=== PATIENT | male | born 1980 | race American Indian/Alaskan Native ===

== ENCOUNTER → 2021-06-01 15:20 | Outpatient (BNVA) | payer BC, SELFPAY | PROVIDERS: Family Provider Family Medicine; Visit Provider Registered Nurse Neonatal Intensive Care | DX: M25.561 Pain in right knee (principal) | CPT/HCPCS: 73562 ==

== ENCOUNTER → 2021-08-15 14:57 | Outpatient (BNVA) | payer BC, SELFPAY | PROVIDERS: Family Provider Family Medicine; Visit Provider Orthopaedic Surgery | DX: M25.561 Pain in right knee (principal) | CPT/HCPCS: 73560 ==

== ENCOUNTER → 2021-09-19 14:22 | Outpatient (BNVA) | payer BC, SELFPAY | PROVIDERS: Visit Provider Orthopaedic Surgery | DX: Z20.822 Contact with and (suspected) exposure to COVID-19 (principal); M17.11 Unilateral primary osteoarthritis, right knee | CPT/HCPCS: 87635 ==

== ENCOUNTER 2021-09-24 09:50 | Observation (INO) | payer BC, SELFPAY ==
[2021-09-19 11:06] VITALS: BMI 36.2
--- NOTE | 2021-09-19 11:35 | ANES.PREANE2 ---
Pre-Anesthetic Assessment Pre-Anesthetic Assessment: Height/Weight: Height 1.8 m Weight 117.934 kg Preop Diagnosis: knee pain Proposed Procedure: Operation Date: 09/24/21 07:00 Proposed Procedures p Total Knee Arthroplasty 30492 M17.11(Right) - Chintan Newton MD Familial anesthetic complications: none Social: Social History: Tobacco and No alcohol Exam: Pre-Anes Outpt Exam: alert, oriented x 3, clear to auscultation bilaterally and regular rate & rhythm Airway: MP: 3 Dentition: Full Metabolic: Metabolic: Morbid obesity Musc/skel: Musc/skel: OA/DJD Anesthetic Plan: ASA status: 2 Anesthesia: MAC and Regional (specify below) Other: spinal + adductor Risk of > 500 ml blood loss (7ml/kg in children): Yes, adequate IV access and fluids planned PFSH Anesthesia PFSH: Social History Smoking and tobacco status: current every day smoker Data Anesthesia Cardiac Studies: No Data to Display
[2021-09-24] VITALS (20 sets, daily range): BP systolic 119–164; BP diastolic 76–98; PULSE 61–91; RESP 10–18; TEMP 36.2–37.1; O2SAT 90–99
[2021-09-24] MEDS: gabapentin 300 mg Capsule PO ×2 (06:03→17:05)
[2021-09-24] MEDS: acetaminophen 500 mg Tablet 1000 MG PO ×3 (06:03→17:04)
[2021-09-24] MEDS: CELEcoxib 200 mg Capsule 400 MG PO (06:03)
[2021-09-24] MEDS: oxyCODONE 20 mg ER (12 HR) Tablet PO (06:03)
[2021-09-24] MEDS: sodium chloride 0.9% 1,000 ML 30 ML IV (06:12)
--- NOTE | 2021-09-24 07:00 | P.ANESUD_ITS ---
Pre-Anesthetic Update Pre-Anesthetic Assessment: Date of Surgery/Procedure: 09/24/21 Preop Leonarda gnosis: Osteoarthritis Right knee Proposed Procedure: Operation Date: 09/24/21 07:00 Proposed Procedures p Total Knee Arthroplasty 07734 M17.11(Right) - Chintan Newton MD Any changes to Pre-Anesthetic Assessment?: No Last Intake: Intake Last Liquid Date 09/23/21 Last Liquid Time 23:15 Last Solid Date 09/23/21 Last Solid Time 23:15 Vitals: Temperature 97.6 F 09/24/21 06:03 Temperature Source Temporal Artery S can 09/24/21 06:03 Pulse Rate 91 09/24/21 06:03 Respiratory Rate 16 09/24/21 06:03 Respiratory Effort 09/24/21 06:03 Respiratory Depth Normal 09/24/21 06:03 Respiratory Patter n 09/24/21 06:03 Blood Pressure 161/98 09/24/21 06:03 Blood Pressure Niki n 119 09/24/21 06:03 Pulse Oximetry 98 09/24/21 06:03 Oxygen Delivery Me thod 09/24/21 06:03 Exam: Pre-Anes Outpt Exam: alert, oriented x 3, clear to auscultation bilaterally and regular rate & rhythm Cardiac Studies: No Data to Display
--- NOTE | 2021-09-24 07:01 | W.PM.OPSFHP ---
Same Day Surgery H&P Indication for Procedure/HPI DATE OF PROCEDURE: September 24, 2021 CHIEF COMPLAINT/INDICATIONFOR SURGICAL PROCEDURE: 40-year-old with osteoarthritis right knee. Has failed anti-inflammatory and injections. Here for elective right total knee Dav PREOP DIAGNOSIS: Osteoarthritis Right knee PLANNED PROCEDRUE: Operation Date: 09/24/21 07:00 Proposed Procedures p Total Knee Arthroplasty 23653 M17.11(Right) - Chintan Newton MD Medications/Allergies* Allergies/Adverse Reactions Allergy/AdvReac Type Severity Reaction Status Date / Time No Known Allergies Allergy Verified 08/15/21 14:40 Current Medications: Generic Name Dose Route Start Last Admin Trade Name Freq PRN Reason Stop Dose Admin Sodium Chloride 1,000 mls @ 30 mls/hr 09/24/21 06:00 09/24/21 06:12 Sodium Chloride 0.9% IV 09/25/21 05:59 30 mls/hr .Q24H BILLY Administration Pertinent History/Comorbid Conditions* Social History Smoking and tobacco status: current every day smoker Pertinent Exam Findings alert, oriented x 3, clear to auscultation bilaterally, regular rate & rhythm and operative site marked Recommendations Surgery/Procedure today Coding Level of Care Code Acute Registered Nurse Bone Marrow Transplant for Candida Pérez
[2021-09-24] MEDS: tranexamic acid 1,000 mg/10mL SDV 1000 MG IV (07:50)
--- NOTE | 2021-09-24 07:56 | ANES.PROC ---
Anesthesia Procedures Procedure/Date: 09/24/21 Nerve Block ^: Nerve Block 1: Main Anesthesia: spinal anesthesia block Time Out Performed: Yes Consent: requested by attending/covering physician, from patient, risks and benefits reviewed and patient agrees to proceed Nerve block location: adductor canal (right) Anesthesia monitors applied: pulse oximetry, EKG, BP cuff and oxygen Nerve block position: supine Anesthetic Used: ropivicaine 0.5% Amount of anesthesia used (mL): 20 Ultrasound used to: recognize landmarks Nerve Stimulator Used?: No Interscalene/Femoral BLK: 4 stimuplex 21 g needle used for position and inplane approach and visualize local anesthetic spread Injection: neg aspiration of heme Patient Tolerated Procedure: well Complications: none
[2021-09-24] MEDS: tranexamic acid 1,000 mg/10mL SDV 1000 MG IRRIGATION (08:08)
[2021-09-24] MEDS: ketorolac 30 mg/mL INJ IM (08:08)
[2021-09-24] MEDS: EPINEPHrine 1 mg/mL INJ XX (08:08)
--- NOTE | 2021-09-24 09:24 | XR_ITS ---
WS: [id number] KNEE RIGHT TECHNIQUE: 2 views of the right knee CLINICAL INFORMATION: Right Total Knee arthroplasty COMPARISON: None. FINDINGS: Normal anatomic alignment. Recent postoperative changes right TKA. Hardware in good position. No evid ence of hardware loosening. Patella prosthesis. Soft tissue edema. Postoperative air in the subcutane ous soft tissues and bursa. XR/XR knee RT 1-2V 48206 IMPRESSION: Normal for postoperative purposes Kellgren-Moiz Classification: NA
--- NOTE | 2021-09-24 09:24 | PM.OP ---
Operative Report Date of procedure: September 24, 2021 Pre-op Diagnosis: Osteoarthritis Right knee Post-op diagnosis: same Post-op Findings: Same Procedure Done: Right total knee arthroplasty Pathology: none sent Surgeon: Chintan Newton Anesthesia: Nerve Block (Spinal, adductor canal block) Estimated blood loss (mL): 100 Findings: The patient had eburnated bone the patient had eburnated bone over the medial femoral condyle medial tibial plateau patella and trochlea. Condition: stable Disposition: PACU Procedure: the patient was taken to the operating room. Patient was given 1 g of tranexamic acid . The above anesthesia provided by the anesthesia service. A timeout was performed. The patient was prepped and draped in the usual fashion with the lower extremity exposed. A anterior incision was made, midline, from a point proximal to the patella to the distal tibial tubercle. The knee was entered through a medial parapatellar approach. The patella could be displaced laterally and the knee flexed. The patellar fat pad was resected to provide better visibility. Retractors were placed medially and laterally adjacent to the tibial plateau. The femoral canal was drilled in line with the longitudinal axis of the femur. Intramedullary femoral guide for used to make a distal femoral cut in 5 degrees of valgus, resecting 8 mm from the more prominent condyle. Next the extra medullary tibial guide was placed in alignment with the longitudinal axis of the tibia. The cutting guides were set to remove just over 9 mm from the high tibial plateau. The proximal tibia was then cut. The femoral measuring guide was then placed over the distal femur. Rotation was verified checking the relationship of the guide to the condyle and the trochlear groove. The femur was measured and cut for the desired femoral component. The desired tibial baseplate was then chosen. A trial reduction with the femur tibial baseplate and polyethylene was done, assuring that the knee was stable throughout full motion. Ligament balancing nothing more than a release of the deep medial collateral ligament and resection of medial osteophyte.The tibia was prepared for the tibial baseplate. Patellar thickness was then measured. The patella was cut removing articular cartilage and prepared for appropriate size patellar button. surfaces were cleaned with a gentamicin solution. The femur tibia and patella were then press-fit into place. The posterior capsule and collateral ligaments were then injected with a solution of 100 mL of 0.2% ropivacaine, 1 mL of a 1:1000 epinephrine solution, 30 mg of Toradol, and 1 g of tranexamic acid. final polyethylene component was then snapped into place into the tibia. The extensor retinaculum was closed with a running 1 Stratafix.. The subcutaneous tissues were closed with 2-0 Vicryl and the skin was closed with a running 4-0 Stratafix. The wound was covered with a Dermabond Prinio dressing. It was covered with 4xrs and a compressive Tubigauae was applied. The patient was taken to recovery room in stable condition. [employer] Stix total knee arthroplasty components were used includin) Size 5 triathalon cruciate retaining femoral component 2) Size 5 Tritanium tibial component 3) 35 mm /10mm thickness Tritanium asymetric patella 4) Size 5/13 mm thickness CR tibial bearing insert
[2021-09-24] MEDS: ondansetron 2 mg/ML SDV 2 mL 4 MG IVP (09:28)
[2021-09-24] MEDS: oxyCODONE 5 mg IR Tab/Cap PO ×2 (10:23→14:41)
[2021-09-24] MEDS: sodium chloride 0.9% 1,000 ML 100 ML IV (11:34)
--- NOTE | 2021-09-24 13:31 | ANE.PACU2 ---
Inpatient post-anesthesia follow up: Airway intact: Yes Vital signs: Temperature 98.7 F Pulse Rate 61 Respiratory Rate 16 Blood Pressure 147/91 Pulse Oximetry 97 Oxygen Delivery Me thod Room Air Oxygen Flow Rate Fraction of Inspir ed Oxygen Hydration adequate: Yes Nausea and vomiting: No Pain level: 2 Mental status: Baseline
--- NOTE | 2021-09-24 16:01 | PM.DCS ---
Discharge Providers Date of Admission: 09/24/21 09:50 Date of Discharge: September 24, 2021 Attending Provider at Admission: Chintan Newton MD Attending Provider at Discharge: Chintan Newton MD Diagnoses at Discharge Discharge Diagnosis (1) Status post right knee replacement: Status: Acute (2) Osteoarthritis of right knee: Status: Resolved Reason for Visit Reason for Visit: Primary osteoarthritis of right knee Hospital Course Hospital Course The patient was admitted to the hospital by afternoon the surgery he was independent with a walker foot pumps in the hospital for DVT prophylaxis and proficient in his home exercise program. His pain was under adequate control and he was discharged home. He was managed with aspirin and Physical Exam Narrative: EXAM NARRATIVE: On the day of discharge his knee incision was clean. They had no drainage. There is minimal swelling in the thigh and knee and the calf. No distal neurovascular deficits were noted Discharge Data Data Completed and Pending: Completed Studies During Hospitalization Category Date Time Status XR knee RT 1-2V 7 3560 Routine Exams 09/24/21 09:24 Completed Pending at discharge Category Date Time Status Hemoglobin AM LAB S Lab 09/25/21 04:00 Ordered Vitals: Last Vital Signs Temp 98.7 F 09/24/21 10:10 Pulse 61 09/24/21 12:55 Resp 18 09/24/21 14:41 BP 147/91 09/24/21 10:10 Pulse Ox 97 09/24/21 12:55 Discharge Plan Discharge Patient Disposition: Home Condition: Stable Prescriptions: New oxycodone 5 mg capsule 5 mg PO Q4H PRN (Reason: pain) 7 Days Qty: 40 RF: 0 gabapentin 300 mg Capsule 300 mg PO BID 7 Days Qty: 14 RF: 0 acetaminophen 500 mg Tablet 1,000 mg PO Q8H 14 Days Qty: 84 RF: 0 aspirin 325 mg Tablet,Delayed Release (Dr/Ec) 325 mg PO DAILY 30 Days RF: 0 celecoxib 200 mg Capsule 200 mg PO Q12H 14 Days Qty: 28 RF: 0 Discontinued meloxicam 15 mg tablet 15 mg PO DAILY Qty: 30 RF: 0 naproxen 500 mg tablet 500 mg PO BID PRN (Reason: pain) Qty: 30 RF: 0 Discharge Orders: Discharge Order (Routine); Ordered 09/24/21 Ordered By: Chintan Newton Referrals: Chintan Newton MD [Physician] - 09/27/21 8:00 am Discharge Diet: Advance as tolerated Discharge Activity: Limit activity as instructed Patient Instructions: Opioid Safety Activity Restrictions/Additional Instructions: Okay to shower Keep Tubigauze sleeve in place for swelling. Okay to remove for hygiene. Apply FirstIce up to 20 min/hr for pain and swelling Take Celebrex twice a day for the next 15 days for pain , discontinue other anti-inflammatories Take Neurontin twice a day for 7 days. Take Tylenol 500mg (1-2 tabs) as needed 3 times a day for mild pain take oxycodone for breakthrough pain. Exercises per physical therapy. May weight-bear as tolerated on total knee arthroplasty Discharge Attestations Time Spent in Discharge Care*: other Quality Metrics Clinical Quality Measures During this hospital stay, did patient experience: None Coding Level of Care Code Acute [facility] TATIANA note Diagnoses Status post right knee replacement Z96.651 Osteoarthritis of right knee M17.11
[2021-09-24] MEDS: CELEcoxib 200 mg Capsule PO (17:05)
--- NOTE | 2021-09-24 17:47 | PC.NURSE ---
patient verbalized understanding of discharge instructions, home medications, and follow up appointments. prescriptions ready at [facility] pharmacy and patient requested to pick them up vs waiting until 1800 for them to be delivered to bedside.
--- NOTE | 2021-09-25 15:00 | ANE.PACU2 ---
Inpatient post-anesthesia follow up: Airway intact: Yes Vital signs: Temperature 98.7 F Pulse Rate 63 Respiratory Rate 16 Blood Pressure 127/89 Pulse Oximetry 94 Oxygen Delivery Me thod Room Air Oxygen Flow Rate Fraction of Inspir ed Oxygen Hydration adequate: Yes Nausea and vomiting: No Pain level: 2 Mental status: Baseline
== END 2021-09-24 17:20 | disposition home or self-care (01) ==
LOC: MEDSURG 10:06
PROVIDERS: Admitting Provider Orthopaedic Surgery; Visit Provider Orthopaedic Surgery
PROC: (CPT 27447; principal; 2021-09-24 07:00)
DX: M17.11 Unilateral primary osteoarthritis, right knee (principal); E66.01 Morbid (severe) obesity due to excess calories; Z68.36 Body mass index [BMI] 36.0-36.9, adult; F17.210 Nicotine dependence, cigarettes, uncomplicated
CPT/HCPCS: 27447; 64447; 73560; 76942; 97161; 97165; C1776; G0378; J0171; J0690; J1170; J1580; J1885; J2250; J2405; J2704; J2795; J3010; J3490; J7030

== ENCOUNTER 2021-10-18 06:00 | Outpatient (RCR) | payer BC, SELFPAY | END 2021-10-29 23:59 | disposition home or self-care (01) | LOC: SPT 06:00 | PROVIDERS: Referring Provider Orthopaedic Surgery; Visit Provider Orthopaedic Surgery | DX: Z47.1 Aftercare following joint replacement surgery (principal); Z96.651 Presence of right artificial knee joint | CPT/HCPCS: 97110; 97161 ==

== ENCOUNTER 2021-10-30 06:00 | Outpatient (RCR) | payer BC, SELFPAY | END 2021-11-26 23:59 | disposition home or self-care (01) | LOC: SPT 06:00 | PROVIDERS: Referring Provider Orthopaedic Surgery; Visit Provider Orthopaedic Surgery | DX: Z47.1 Aftercare following joint replacement surgery (principal); Z96.651 Presence of right artificial knee joint | CPT/HCPCS: 97110 ==

== ENCOUNTER → 2021-11-07 14:36 | Outpatient (BNVA) | payer BC, SELFPAY | PROVIDERS: Visit Provider Orthopaedic Surgery | DX: Z96.651 Presence of right artificial knee joint (principal) | CPT/HCPCS: 73560; 73565 ==

== ENCOUNTER 2021-11-27 06:00 | Outpatient (RCR) | payer BC, SELFPAY | END 2021-11-28 23:59 | disposition home or self-care (01) | LOC: SPT 06:00 | PROVIDERS: Referring Provider Orthopaedic Surgery; Visit Provider Orthopaedic Surgery | DX: Z47.1 Aftercare following joint replacement surgery (principal); Z96.651 Presence of right artificial knee joint | CPT/HCPCS: 97110 ==

== ENCOUNTER → 2022-03-24 13:30 | Outpatient (BNVA) | payer BC, SELFPAY | PROVIDERS: Visit Provider Registered Nurse Neonatal Intensive Care | DX: M25.562 Pain in left knee (principal) | CPT/HCPCS: 73562 ==

== ENCOUNTER 2024-04-20 02:35 | Emergency (ER) | payer OTHER, SELFPAY ==
[2024-04-20 02:40] VITALS: BP 179/103; PULSE 90; RESP 18; TEMP 36.6; O2SAT 96; BMI 34.4
--- NOTE | 2024-04-20 02:43 | XRR_ITS ---
PROCEDURE INFORMATION: Exam: XR Right Hand Exam date and time: 04/20/2024 2:41 AM Age: 43 years old Clinical indication: Injury or trauma; Other: Laceration; Work related; Right; Index finger; Patient HX: Patient's 2nd RT digit caught in a saw just prior to arrival. ; Additional info: 2nd digit trauma vs saw TECHNIQUE: Imaging protocol: Radiologic exam of the right hand. Views: 3 or more views. COMPARISON: No relevant prior studies available. FINDINGS: Bones/joints: There is severely displaced comminuted fracture of the index finger middle phalanx, with dislocation of the distal phalanx. Marked swelling of the surrounding soft tissues is present. Soft tissues: See Bones/joints finding. XR/XR hand RT min 3V* [id number] IMPRESSION: Severely displaced comminuted fracture of the index finger middle phalanx with dislocation of the distal phalanx.
[2024-04-20] MEDS: tetanus-dipt-pertussis 0.5 mL SDV IM (02:47)
[2024-04-20] MEDS: lidocaine 1% INJ 10 mL (per mL) XX (02:54)
--- NOTE | 2024-04-20 02:56 | ED_ITS ---
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 Patient's hand got caught in the saw and pulled his hand into the sawmill. Patient is unaware of his tetanus status. Bleeding is controlled. Patient does not have any sensation distal to the laceration of the middle phalangeal area. Patient has no other complaints at this time. Review of Systems General: Reports: 10 or more systems reviewed and unremarkable except in HPI and below PFSH ED PFSH: Social History Smoking and tobacco/nicotine status: current every day tobacco/nicotine user Physical Exam Const: COMMON NORMALS: no acute distress, average body habitus, patient oriented x3, no limitations, healthy appearing, alert and well nourished HENMT: COMMON NORMALS: normocephalic, atraumatic, hearing grossly normal bilaterally, external ears normal, Normal external nose present and moist oral mucous membranes HEAD & SCALP: normocephalic and atraumatic NOSE: Normal external nose present EXTERNAL EAR: Yes external ears normal Neck/C-Spine: COMMON NORMALS: no JVD Chest: COMMONS NORMALS: normal inspection of the chest and normal palpation of entire chest wall Resp: COMMON NORMALS: normal respiratory effort, No retractions, No use of accessory muscles and clear to auscultation bilaterally AUSCULTATION: clear to auscultation bilaterally Cardio: COMMON NORMALS: no JVD, regular rate, regular rhythm, S1 normal heart sound present, S2 normal heart sound present, No gallops present (Cardio), No clicks present (Cardio), No murmurs present (Cardio) and No rub (Cardio) RATE: regular rate RHYTHM: regular rhythm HEART SOUNDS: S1 normal heart sound present and S2 normal heart sound present GI: COMMON NORMALS: Normal to inspection, nondistended, normoactive bowel sounds present, Soft to palpation, non-tender, No hepatosplenomegaly present and no masses PALPATION: Yes Soft to palpation and Yes No hepatosplenomegaly present Extremity: NARRATIVE EXTREMITY EXAM: Laceration to second digit on right hand middle phalangeal area obvious exposed bone obvious deformity very mangled in appearance, small laceration to metacarpal phalangeal region on the dorsal side of same finger. Patient has no sensation distally to the large wound in the middle phalangeal area. Neuro: COMMON NORMALS: patient oriented x3 SENSORIUM/ORIENTATION: Yes alert Course Vital Signs: Vital signs: Vital Signs Temperature 97.8 F 04/20/24 02:40 Pulse Rate 72 04/20/24 04:15 Respiratory Rate 18 04/20/24 02:40 Blood Pressure 179/103 04/20/24 02:40 Pulse Oximetry 96 04/20/24 04:15 Oxygen Delivery Me thod Room Air 04/20/24 02:40 MDM - Extremity (Nontraumatic) Medical Decision Making Patient discussed with Dr. Mckeon at [facility] photos were sent of wound and x- rays for his review. He says patient needs a revision amputation and he cannot provide that before his shift is over with so if patient wants to see him he should go to [facility] in [place] to the ER and he will follow him there. Dr. Mckeon did not accept the patient because of this but that he could follow-up somewhere else that has a hand surgeon. product inspection coordinator did called back a nd stated that his shift is not over until 7 AM and they do have another hand surgeon coming on after that so we could call back at that time if so desired. The patient was not happy with this answer so he called [facility] transfer center we talk with Dr. Rene hand surgeon who said we could clean it up to the best of her ability apply bulky dressing wet to dry start him on some clindamycin and pain control and have him call his office at 9 AM today to arrange further evaluation and treatment. Patient agreed to this. Medical Records I reviewed the patient's medical records. Lab Data I reviewed the patient's lab results. Radiology Impressions Hand X-Ray 04/20/24 02:43 IMPRESSION: Severely displaced comminuted fracture of the index finger middle phalanx with dislocation of the distal phalanx. 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 Qualifiers: Encounter type: initial encounter Qualified Code(s): S68.119A - Complete traumatic metacarpophalangeal amputation of unspecified finger, initial encounter Condition: Stable Prescriptions: New clindamycin HCl 300 mg capsule 300 mg PO Q6H 7 Days Qty: 28 0RF hydrocodone-acetaminophen 5-325 mg tablet 1 tab PO Q6H PRN (Reason: pain) Qty: 14 0RF No Action sulfamethoxazole-trimethoprim [Bactrim DS] 800-160 mg tablet 1 tab PO BID 10 Days Qty: 20 0RF Discharge Orders: Discharge ED (Routine); Ordered 04/20/24 Ordered By: Griffin Amaya Referrals: Eve Rene MD [Referring] - Patient Instructions: Finger Amputation (ED) Activity Restrictions/Additional Instructions: Please take all medicine as directed. Please follow-up with Dr. Rene hand surgeon, please call his office at 9 AM this morning to arrange for further evaluation and treatment. Coding Level of Care Code ED Foam Rubber Molder for Candida Pérez
[2024-04-20] MEDS: piperacillin-tazobactam 3.375 GM in sodium chloride 0.9% (plus) 50 ML IV (03:03)
[2024-04-20 03:44] VITALS: PULSE 72; O2SAT 97
[2024-04-20] MEDS: clindamycin 150 mg Capsule 300 MG PO (04:01)
--- NOTE | 2024-04-20 04:10 | PC.NURSE ---
approved. Pt sent home with 2 hydrocodone 10-325mg tablets.
[2024-04-20 04:15] VITALS: PULSE 72; O2SAT 96
== END 2024-04-20 04:15 | disposition home or self-care (01) ==
PROVIDERS: Emergency Provider Emergency Medicine
DX: S68.110A Complete traumatic metacarpophalangeal amputation of right index finger, initial encounter (principal); W27.0XXA Contact with workbench tool, initial encounter; Y99.0 Civilian activity done for income or pay; Z72.0 Tobacco use; Z23 Encounter for immunization
CPT/HCPCS: 73130; 90471; 90715; 96365; 99284; J2543